=== PATIENT | female | born 1995 | race African-American/Black ===

== ENCOUNTER 2017-05-14 07:31 | Emergency (ER) | payer SELFPAY ==
[~2017-05-14] VITALS: Ht 154.9 cm; Wt 49.9 kg
[2017-05-14 09:23] LABS: BILIRUBIN,URINE NEGATIVE (NEGATIVE); KETONES,URINE NEGATIVE (NEGATIVE); LEUKOCYTE ESTERASE ,URINE 2+ (NEGATIVE); NITRITE,URINE NEGATIVE (NEGATIVE); PROTEIN,URINE DIPSTICK NEGATIVE (NEGATIVE); URINE UROBILINOGEN 0.2 mg/dL (0.2 - 1)
[2017-05-14 09:24] LABS: CLARITY,URINE SL CLOUDY (CLEAR); COLOR,URINE YELLOW (YELLOW)
[2017-05-14 09:37] LABS: AMORPHOUS SEDIMENT,URINE RARE (FEW); BACTERIA,URINE RARE /HPF; EPITHELIAL CELLS,URINE MODERATE /LPF
[2017-05-14 09:40] VITALS: BP 108/63
== END 2017-05-14 10:05 | disposition home or self-care (01) ==
LOC: ER 07:31
DX: Z32.01 Encounter for pregnancy test, result positive (principal); R10.2 Pelvic and perineal pain
CPT/HCPCS: 81001; 81025; 87086; 87186; 99283

== ENCOUNTER 2017-08-02 15:15 | Emergency (ER) | payer OTHER | END 2017-08-02 16:01 | disposition short-term general hospital (02) | LOC: ER 15:15 | DX: L29.9 Pruritus, unspecified (principal) ==

== ENCOUNTER 2018-01-11 18:11 | Emergency (ER) | payer OTHER ==
[~2018-01-11] VITALS: Ht 154.9 cm; Wt 58.5 kg
[2018-01-11] MEDS ORDERED: LACTATED RINGER'S 1,000 ML ONE (18:48)
[2018-01-11] MEDS ORDERED: LACTATED RINGER'S 1,000 ML IV ONE (18:49)
[2018-01-11 19:23] VITALS: BP 123/83
--- OUTSIDE RECORDS SUMMARY | 2018-02-24 03:35 | XMS REPORT | Continuity of Care Document ---
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 No 03/17/17 3:25pm If yes, is advance directive on file with [facility]? No 03/17/17 3:25pm If not on file with [facility] will patient provide a copy? No 03/17/17 3:25pm Do you have a Directive to Physician? No 08/02/17 4:09pm Do you have a Medical Power of Engineer Design And Construction? No 08/02/17 4:09pm Do you have an out of hospital Do Not Resuscitate Order? No 08/02/17 4:09pm Do you have any special needs we should be aware of? No 08/02/17 4:09pm Do you have a support person here with you today? Yes 08/02/17 4:09pm Did patient receive Notice of Privacy Practices? Yes 08/02/17 4:09pm Did patient receive patient rights and responsibilities? Yes 08/02/17 4:09pm Problems No problem information available. Medications No medication information available. Social History No social history information available. Hospital Discharge Instructions No hospital discharge instruction information available. Plan of Care Discharge Date 08/02/17 4:01pm Disposition REQUEST WITHDRAWN FOR MSE Condition at Discharge Stable Forms Provided Work/School Excuse Prescriptions See Medication Section Functional Status No functional status information available. Allergies, Adverse Reactions, Alerts No known allergies. Immunizations No immunization information available. Vital Signs Acute Vital Signs Vital Response Date/Time Temperature (Fahrenheit) 98.2 degrees F (97.6 - 99.5) 03/17/2017 4:36pm Pulse Pulse Rate (adult) 62 bpm (60 - 90) 05/14/2017 9:40am Respiratory Rate 18 bpm (12 - 24) 05/14/2017 9:40am Blood Pressure 108/63 mm Hg 05/14/2017 9:40am Results Laboratory Results Test Name Result Units Flags Reference Collection Date/Time Result Date/ Time Comments White Blood Count 7.90 x10e3/uL 4.8-10.8 03/17/2017 2:30pm 03/17/2017 2 :45pm Red Blood Count 4.04 x10e6/uL 3.6-5.1 03/17/2017 2:30pm 03/17/2017 2: 45pm Hemoglobin 10.3 g/dL L 12.0-16.0 03/17/2017 2:30pm 03/17/2017 2:45pm Hematocrit 32.0 % L 34.2-44.1 03/17/2017 2:30pm 03/17/2017 2:45pm Mean Corpuscular Volume 79.2 fL L 81-99 03/17/2017 2:30pm 03/17/2017 2: 45pm Mean Corpuscular Hemoglobin 25.5 pg L 28-32 03/17/2017 2:30pm 2016 2:45pm Mean Corpuscular Hemoglobin Concent 32.2 g/dL 31-35 03/17/2017 2:30pm 03/17/2017 2:45pm Red Cell Distribution Width 15.4 % H 11.7-14.4 03/17/2017 2:30pm 2016 2:45pm Platelet Count 379 x10e3/uL H 140-360 03/17/2017 2:30pm 03/17/2017 2: 45pm Neutrophils (%) (Auto) 68.2 % 38.7-80.0 03/17/2017 2:30pm 03/17/2017 2: 45pm Lymphocytes (%) (Auto) 22.5 % 18.0-39.1 03/17/2017 2:30pm 03/17/2017 2: 45pm Monocytes (%) (Auto) 7.1 % 4.4-11.3 03/17/2017 2:30pm 03/17/2017 2: 45pm Eosinophils (%) (Auto) 1.8 % 0.0-6.0 03/17/2017 2:30pm 03/17/2017 2: 45pm Basophils (%) (Auto) 0.3 % 0.0-1.0 03/17/2017 2:30pm 03/17/2017 2:45pm IM GRANULOCYTES % 0.1 % 0.0-1.0 03/17/2017 2:30pm 03/17/2017 2:45pm Neutrophils # (Auto) 5.4 2.1-6.9 03/17/2017 2:30pm 03/17/2017 2:45pm Lymphocytes # (Auto) 1.8 1.0-3.2 03/17/2017 2:30pm 03/17/2017 2:45pm Monocytes # (Auto) 0.6 0.2-0.8 03/17/2017 2:30pm 03/17/2017 2:45pm Eosinophils # (Auto) 0.1 0.0-0.4 03/17/2017 2:30pm 03/17/2017 2:45pm Basophils # (Auto) 0.0 0.0-0.1 03/17/2017 2:30pm 03/17/2017 2:45pm Absolute Immature Granulocyte (auto 0.01 x10e3/uL 0-0.1 03/17/2017 2: 30pm 03/17/2017 2:45pm Urine Color YELLOW YELLOW 05/14/2017 7:50am 05/14/2017 9:24am Urine Clarity SL CLOUDY CLEAR 05/14/2017 7:50am 05/14/2017 9:24am Urine Specific [place] 1.025 1.010-1.025 05/14/2017 7:50am 2016 9:24am Urine pH 6 5 - 7 05/14/2017 7:50am 05/14/2017 9:24am Urine Leukocyte Esterase 2+ H NEGATIVE 05/14/2017 7:50am 05/14/2017 9: 24am Urine Nitrite NEGATIVE NEGATIVE 05/14/2017 7:50am 05/14/2017 9:24am Urine Protein NEGATIVE NEGATIVE 05/14/2017 7:50am 05/14/2017 9:24am Urine Glucose (UA) NEGATIVE NEGATIVE 05/14/2017 7:50am 05/14/2017 9: 24am Urine Ketones NEGATIVE NEGATIVE 05/14/2017 7:50am 05/14/2017 9:24am Urine Urobilinogen 0.2 mg/dL 0.2 - 1 05/14/2017 7:50am 05/14/2017 9: 24am Urine Bilirubin NEGATIVE NEGATIVE 05/14/2017 7:50am 05/14/2017 9: 24am Urine Blood TRACE H NEGATIVE 05/14/2017 7:50am 05/14/2017 9:24am Urine WBC 6-10 /HPF H 0-5 05/14/2017 7:50am 05/14/2017 9:37am Urine RBC 6-10 /HPF H 0-5 05/14/2017 7:50am 05/14/2017 9:37am Urine Bacteria RARE /HPF NONE 05/14/2017 7:50am 05/14/2017 9:37am Urine Epithelial Cells MODERATE /LPF NONE 05/14/2017 7:50am 05/14/2017 9:37am Urine Amorphous Sediment RARE FEW 05/14/2017 7:50am 05/14/2017 9: 37am Urine Test POSITIVE NEGATIVE 05/14/2017 7:50am 05/14/2017 8 :35am Microbiology Results Procedure Source Organism/Result Collection Date/Time Result Date/Time Result Status Urine Culture Urine,Random ESCHERICHIA COLI 05/14/2017 7:50am 05/16/2017 7 :34am Final STREP AGALACTIAE GROUP B 05/14/2017 7:50am 05/16/2017 7:34am Final Procedures No procedure information available. Encounters Encounter Location Arrival/Admit Date Discharge/Depart Date Attending Provider Departed Emergency Room [facility] Patients [facility] 08/02/17 3:15pm 4:01pm CHELLY ROB MD Departed Emergency Room [facility] Patients [facility] 05/14/17 7:31am 10:05am RADHA GOOD Departed Emergency Room [facility] 03/17/17 1:51pm 4:44pm CHELLY ROB MD
== END 2018-01-11 18:54 | disposition other institution (70) ==
LOC: ER 18:11
DX: O26.93 Pregnancy related conditions, unspecified, third trimester (principal); O62.8 Other abnormalities of forces of labor; Z3A.37 37 weeks gestation of pregnancy
CPT/HCPCS: 99284; J7120